=== PATIENT | female | born 1960 | race Caucasian/White ===

== ENCOUNTER 2020-03-28 08:42 | Emergency (ER) | payer MEDICAID, SELFPAY ==
[2020-03-28] VITALS (49 sets, daily range): BP systolic 138–198; BP diastolic 70–161; PULSE 48–84; RESP 9–38; TEMP 36.7; O2SAT 95–99
--- NOTE | 2020-03-28 08:45 | RT.EKG_ITS ---
APPROVED REPORT Exam: Resting ECG Patient Location: E HR:76 bpm ECG Measurements Heart Rate 76 AXIS DC 149 P 97 QRSd 102 QRS -59 QT 406 T 57 QTc 456 Conclusion Sinus rhythm...normal P axis, V-rate 60- 99 Left axis deviation...QRS axis (-30,-90)
--- NOTE | 2020-03-28 08:45 | DI.RAD_ITS ---
EXAM: XR CHEST 2V PA LATERAL CLINICAL HISTORY: stroke TECHNIQUE: 2D digital imaging was performed. COMPARISON: No exams were available for comparison FINDINGS: MEDIASTINUM: Normal. HEART: Normal. PULMONARY VASCULATURE: Normal. LUNGS: Clear. PLEURAL SPACE: No pleural effusion or pneumothorax. BONE:Normal. OTHER FINDINGS:Normal. IMPRESSION: No acute pulmonary findings. DATA REPOSITORY: RADIATION DOSE DELIVERED:
[2020-03-28 09:09] LABS: Abs Immature Grans 0.01 10^3/uL (0.0-0.06); Absolute Basophil Count 0.01 10^3/uL (0.0-0.2); Absolute Eosinophil Count 0.07 10^3/uL (0.0-0.7); Absolute Lymphocyte Count 1.77 10^3/uL (1.2-3.4); Absolute Monocyte Count 0.46 10^3/uL (0.1-0.8); Absolute Neutrophil Count 4.43 10^3/uL (1.2-6.7); Basophils % 0.1; HCT 41.4 % (36.0-46.0); HGB 13.9 g/dL (11.2-15.7); Immature Grans % 0.1; Lymphocytes % 26.2; MCH 29.6 pg (27.0-33.0); MCHC 33.6 % (32.0-36.0); MCV 88.3 fL (80-95); MPV 9.5 fL (8.0-11.0); Monocytes % 6.8; Neutrophils % 65.8; Nucleated RBC 0 %; Platelet Count 334 10^3/uL (130-400); RBC 4.69 10^6/uL (3.93-5.22); RDW 13.2 % (11.7-14.6); RDW-SD 42.6 fL; WBC 6.75 10^3/uL (4.4-10.8)
--- NOTE | 2020-03-28 09:15 | DI.CT_ITS ---
EXAM: CT BRAIN NECK CTA CLINICAL HISTORY: Aphasia, weakness. TECHNIQUE: Imaging Protocol: Axial CT angiography was performed with multi-slice acquisition and mu lti-planar and/or 3D reconstructions. CONTRAST MATERIAL: Intravenous: Omnipaque 350 Contrast volume:structured data in ml Intravenous: Omnipaque 350 Contrast volume:100 cc COMPARISON: US THYROID ULTRASOUND from 05/03/2012 US THYROID ULTRASOUND from 05/03/2012 FINDINGS: CT Head W/O: Ventricles and Extra axial spaces: Normal in size and morphology for the patient's age. Hemorrhage: None. Cerebral parenchyma: Normal. Midline shift: None. Brainstem/Cerebellum: Normal. Calvarium: Normal. Visualized Paranasal sinuses/Mastoids: Clear. Soft Tissues: Unremarkable. CTA Brain W: Internal Carotid Arteries: Petrous: Normal. Cavernous: Normal. Cerebral: Normal. Middle Cerebral Arteries: Right: No aneurysm, occlusion or significant stenosis. Left: No aneurysm, occlusion or significant stenosis. Anterior Cerebral Arteries: Right: No aneurysm, occlusion or significant stenosis. Left: No aneurysm, occlusion or significant stenosis. Posterior cerebral Arteries: Right: No aneurysm, occlusion or significant stenosis. Left: No aneurysm, occlusion or significant stenosis. Vertebral Arteries: Right: No aneurysm, occlusion or significant stenosis. Left: No aneurysm, occlusion or significant stenosis. Basilar Artery: No aneurysm, occlusion or significant stenosis. CTA Neck W: Common Carotid: Right: No aneurysm, occlusion or significant stenosis. Left: No aneurysm, occlusion or significant stenosis. External Carotid: Right: No aneurysm, occlusion or significant stenosis. Left: No aneurysm, occlusion or significant stenosis. Internal Carotid: Cavernous: Minimal calcification bilaterally. No significant stenosis. Right: No aneurysm, occlusion or significant stenosis. Left: No aneurysm, occlusion or significant stenosis. Vertebral Artery: Right: No aneurysm, occlusion or significant stenosis. Left: No aneurysm, occlusion or significant stenosis. Lung Apices: Normal. Bones: Degenerative disc changes greatest at C5-6. facet degenerative changes. Soft Tissues: 2 roughly centimeter nodule is noted in the left lobe of the thyroid. A Nodule was seen on previous thyroid ultrasound which measured 2 cm. IMPRESSION: 1. Minimal calcification in the internal carotid arteries, cavernous portion, otherwise normal CTA ex amination of the [place]. 2. Unremarkable noncontrast CT Head. 3. Normal CTA examination of the neck. Left thyroid nodule: Not definitely changed from previous exam. A thyroid ultrasound could be perfor med if clinically indicated. RADIATION DOSE DELIVERED: LINK-TO-SR Total DLP 1,134.27mGy.cm Total DLP DATA REPOSITORY: All CT scans at this facility are submitted to the National Radiology Data Registry (NRDR) Dose Index Registry (DIR) with the [employer] (ACR). RADIATION OPTIMIZATION: All CT scans at this facility use at least one of these dose optimization te chniques: automated exposure control; mA and/or kV adjustment per patient size (includes targeted exa ms where dose is matched to clinical indication); or iterative reconstruction.
[2020-03-28 09:23] LABS: Prothrombin Time 10.5 sec (9.3-11.0)
[2020-03-28 09:27] LABS: ALT 16 U/L (14-59); AST 16 U/L (15-37); Albumin 3.8 g/dL (3.4-5.0); Alkaline Phosphatase 82 U/L (46-116); Anion Gap 9.7 mmol/L (3-11); BUN 11 mg/dL (7-18); Bilirubin, Total 0.6 mg/dL (0.2-1.0); CO2 24.3 mmol/L (21.0-32.0); CREATININE 0.97 mg/dL (0.55-1.02); Calcium 9.4 mg/dL (8.5-10.1); Chloride 105 mmol/L (98-107); Estimated GFR 58.38 (mL/min/1.73m2); Glucose 110 mg/dL (74-106); Magnesium 1.9 mg/dL (1.8-2.4); Potassium 3.6 mmol/L (3.5-5.1); Sodium 139 mmol/L (136-145); Total Protein 7.3 g/dL (6.4-8.2); Troponin I < 0.05 ng/mL (<0.06)
--- NOTE | 2020-03-28 09:27 | ED.GENADUL_ITS ---
Discharge Plan Disposition Patient Disposition: HOME Condition: Stable Discharge Details Clinical Impression: Aphasia, Hypertension, Left-sided weakness Primary Care Provider: None,None ED Provider: Nicholas Pablo Home Meds and New Rx's Prescriptions: New aspirin 81 mg tablet,chewable 81 mg PO DAILY Qty: 30 RF: 0 metoprolol succinate 25 mg tablet extended release 24 hr 25 mg PO DAILY Qty: 14 RF: 0 No Action No Known Home Meds RF: 0 Discharge Instructions Instructions: Aphasia (DC), Weakness (ED), Hypertension (ED) Additional Instructions: Your laboratory values and imaging here in the ER did not reveal any obvious emergent process. Given your symptoms of hypertension, difficulty with word finding, and your left-sided weakness, I am still very concerned about your presentation. I have recommended and offered admission but you have declined. Therefore I have placed you on the care management list to help expedite outpatient primary care follow-up. I also personally spoke with our neurologist, Dr. Odom. She would like you to initiate aspirin therapy which I am providing you a prescription for I am also giving you a low dose of metoprolol to help with your chronic hypertension. Take this medication as directed. Please contact the office of Dr. Odom on Monday for prompt outpatient reevaluation. I have also set you up with a 2-week cardiac event monitor, the results of which will be sent to Dr. Odom. Please watch for new or worsening symptoms and return to the ER for any concerns. Lastly, as we discussed, care management will contact you, you will need to fill out paperwork to help obtain outpatient resources and insurance. Discharge Data Discharge Date/Time-TO BE ENTERED AT DEPARTURE: 03/28/20 13:37 Medical Decision Making This is a 59-year-old female, current smoker, who has a history of hypertension but does not take any medications and does not have a primary care provider. She went to bed asymptomatic on , and by the time she awoke Monday morning at 7 AM she reports that her speech was abnormal and she had left-sided weakness. Clinically she presents anxious, hyperventilating, upset. She is hypertensive and her heart rate is in the 90s. Will obtain IV access, give 10 mg IV labetalol, initiate a cardiac work-up including a brain CT without contrast and a CTA of her brain and neck. Case was immediately discussed with Dr. Pham. At this point differential is wide and includes CVA, TIA, dissection, aneurysm, arrhythmia, infectious process although no clinical suspicion for meningitis, electrolyte abnormalities, thyroid abnormality, etc. Patient has made it very clear to me that she will not be admitted or transferred for this, has full intent to go home today. I explained to her that this is typically a diagnosis and with active symptoms, we would at least admit for observation. She understands this and declines. She is willing to at least stay here for 3 hours for repeat troponin and EKG. Laboratory values do not reveal any obvious emergent process. Urinalysis does reveal positive nitrate, but negative leuk esterase, 5-10 red blood cells, 0-2 white cells, rare bacteria, few epithelials. Patient has no abdominal pain, dysuria or frequency. Upon reevaluation patient is no longer anxious, no longer hyperventilating. Clinically she states that she is feeling some improvement. She is using her left hand freely to use her cell phone. CT imaging unremarkable for obvious emergent process. As the patient has made it very clear that she will not be admitted or transferred for this, I spoke with Dr. Odom, neurology, who is happy to follow the patient in her clinic as an outpatient. She recommends initiating aspirin 81 mg daily, setting the patient up for a cardiac event monitor if possible through the ER. She plans on a more thorough evaluation as an outpatient including MRI of the brain and an echocardiogram. Repeat EKG performed at 1141. Please see official report by Dr. Pham. Sinus bradycardia, ventricular rate of 56. No STEMI. Repeat troponin remains less than 0.05. We discussed her work-up here in the ER. Patient tells me that she is aware of the thyroid nodules. She has been worked up as an outpatient. We also discussed my conversation with Dr. Odom. I am able to set the patient up with only a 14-day Holter from the ER setting, a 30-day will require prior authorization. Patient will contact the neurology office on Monday and I have placed her on the neurology list. I have also placed her on the care management list to help expedite outpatient primary care follow-up. Patient will need to complete paperwork early in the week so that her Holter monitor will be covered by insurance. I will provide her a prescription for baby aspirin and short-term to start her back on on a antihypertensive. She seemed to respond well to the labetalol, will place her on a beta-twyla. Again, she has no focal left-sided deficits upon my evaluation and this did not change during her ER observation. She may have been slightly slow to respond when using her left side but could not perform any task that was required. Her speech was very atypical; however, she was able to convey her thoughts after taking her time. Medical Records Medical records reviewed: Yes I reviewed the patient's medical records. Imaging Data Radiologic Study: Attestation: I personally reviewed and interpreted this imaging study as follows: Imaging: X-Ray Radiologist's impression: Chest x-ray read as negative. Radiologic Study #2: Attestation: I personally reviewed and interpreted this imaging study as follows: Imaging: CT Scan Radiologist's impression: CT of brain without contrast, CTA of brain and neck read by radiology as minimal atheromatous calcification of the bilateral cavernous carotid arteries but no focal stenosis is identified. CT head without contrast including angiograms otherwise normal. Minimal atheromatous calcification of left carotid bulb without stenosis. CT angiogram of the vessels of the neck is otherwise normal. 3.5 cm left thyroid nodule, ultrasound recommended. Degenerative arthritic cervical spine changes. Lab Data Lab results reviewed: Yes I reviewed the patient's lab results. Labs: Laboratory Tests Range/Units 03/28/20 03/28/20 03/28/20 08:56 08:56 08:56 WBC (4.4-10.8) 10^3/uL 6.75 RBC (3.93-5.22) 10^6/uL 4.69 Hgb (11.2-15.7) g/dL 13.9 Hct (36.0-46.0) % 41.4 MCV (80-95) fL 88.3 MCH (27.0-33.0) pg 29.6 MCHC (32.0-36.0) % 33.6 RDW (11.7-14.6) % 13.2 Plt Count (130-400) 10^3/uL 334 MPV (8.0-11.0) fL 9.5 Immature Gran % 0.1 Neutrophils % 65.8 Lymphocytes % 26.2 Monocytes % 6.8 Eosinophils % 1.0 Basophils % 0.1 Nucleated RBC % % 0 Absolute Neutrophils (1.2-6.7) 10^3/uL 4.43 Absolute Lymphocytes (1.2-3.4) 10^3/uL 1.77 Absolute Monocytes (0.1-0.8) 10^3/uL 0.46 Absolute Eosinophils (0.0-0.7) 10^3/uL 0.07 Absolute Basophils (0.0-0.2) 10^3/uL 0.01 PT (9.3-11.0) sec 10.5 INR (0.9-1.1) 1.0 Sodium (136-145) mmol/L 139 Potassium (3.5-5.1) mmol/L 3.6 Chloride (98-107) mmol/L 105 Carbon Dioxide (21.0-32.0) mmol/L 24.3 Anion Gap (3-11) mmol/L 9.7 BUN (7-18) mg/dL 11 Creatinine (0.55-1.02) mg/dL 0.97 Estimated GFR/1.73 m2 (mL/min/1.73m2) 58.38 Glucose (74-106) mg/dL 110 H Calcium (8.5-10.1) mg/dL 9.4 Magnesium (1.8-2.4) mg/dL 1.9 Total Bilirubin (0.2-1.0) mg/dL 0.6 AST (15-37) U/L 16 ALT (14-59) U/L 16 Alkaline Phosphatase (46-116) U/L 82 Troponin I (<0.06) ng/mL < 0.05 Total Protein (6.4-8.2) g/dL 7.3 Albumin (3.4-5.0) g/dL 3.8 Urine Color (Yellow) Urine Clarity (Clear) Urine pH (5-8) Ur Specific [place] (1.005-1.025) Urine Protein (Negative) mg/dL Urine Ketones (Negative) mg/dL Urine Blood (Negative) Urine Nitrite (Negative) Urine Bilirubin (Negative) Urine Urobilinogen (Up TO 0.2) EU/dL Ur Leukocyte Esterase (Negative) Urine RBC (0-2) HPF Urine WBC (0-5) HPF Ur Epithelial Cells (Negative) HPF Urine Crystals (Negative) HPF Urine Bacteria (Negative) HPF Urine Casts (Negative) LPF Urine Mucus (Negative) Ur Culture Indicated? Urine Glucose (Negative) mg/dL Urine Opiates Screen (Negative) Urine Methadone Screen (Negative) Ur Barbiturates Screen (Negative) Ur Tricyclics Screen (Negative) Ur Amphetamines Screen (Negative) U Benzodiazepines Scrn (Negative) Urine Cocaine Screen (Negative) Ur THC Screen (Negative) Range/Units 03/28/20 03/28/20 03/28/20 09:24 09:24 11:43 WBC (4.4-10.8) 10^3/uL RBC (3.93-5.22) 10^6/uL Hgb (11.2-15.7) g/dL Hct (36.0-46.0) % MCV (80-95) fL MCH (27.0-33.0) pg MCHC (32.0-36.0) % RDW (11.7-14.6) % Plt Count (130-400) 10^3/uL MPV (8.0-11.0) fL Immature Gran % Neutrophils % Lymphocytes % Monocytes % Eosinophils % Basophils % Nucleated RBC % % Absolute Neutrophils (1.2-6.7) 10^3/uL Absolute Lymphocytes (1.2-3.4) 10^3/uL Absolute Monocytes (0.1-0.8) 10^3/uL Absolute Eosinophils (0.0-0.7) 10^3/uL Absolute Basophils (0.0-0.2) 10^3/uL PT (9.3-11.0) sec INR (0.9-1.1) Sodium (136-145) mmol/L Potassium (3.5-5.1) mmol/L Chloride (98-107) mmol/L Carbon Dioxide (21.0-32.0) mmol/L Anion Gap (3-11) mmol/L BUN (7-18) mg/dL Creatinine (0.55-1.02) mg/dL Estimated GFR/1.73 m2 (mL/min/1.73m2) Glucose (74-106) mg/dL Calcium (8.5-10.1) mg/dL Magnesium (1.8-2.4) mg/dL Total Bilirubin (0.2-1.0) mg/dL AST (15-37) U/L ALT (14-59) U/L Alkaline Phosphatase (46-116) U/L Troponin I (<0.06) ng/mL < 0.05 Total Protein (6.4-8.2) g/dL Albumin (3.4-5.0) g/dL Urine Color (Yellow) Yellow Urine Clarity (Clear) Clear Urine pH (5-8) 6.0 Ur Specific [place] (1.005-1.025) 1.020 Urine Protein (Negative) mg/dL Negative Urine Ketones (Negative) mg/dL Negative Urine Blood (Negative) Trace-intact H Urine Nitrite (Negative) Positive H Urine Bilirubin (Negative) Negative Urine Urobilinogen (Up TO 0.2) EU/dL 0.2 Ur Leukocyte Esterase (Negative) Negative Urine RBC (0-2) HPF 5-10 H Urine WBC (0-5) HPF 0-2 Ur Epithelial Cells (Negative) HPF Few Urine Crystals (Negative) HPF Negative Urine Bacteria (Negative) HPF Rare Urine Casts (Negative) LPF Negative Urine Mucus (Negative) Trace Ur Culture Indicated? No Urine Glucose (Negative) mg/dL Negative Urine Opiates Screen (Negative) Negative Urine Methadone Screen (Negative) Negative Ur Barbiturates Screen (Negative) Negative Ur Tricyclics Screen (Negative) Negative Ur Amphetamines Screen (Negative) Negative U Benzodiazepines Scrn (Negative) Negative Urine Cocaine Screen (Negative) Negative Ur THC Screen (Negative) Positive A ECG Data Attestation: I personally reviewed and interpreted this ECG (s) as follows: Interpretation: Please see official report by Dr. Pham. Sinus rhythm, ventricular rate of 76. No STEMI. HPI General Mode of arrival: ambulatory . Date/Time Provider Initiated Documentation: 03/28/20 08:44 . Limitations to Documentation: no limitations . Information obtained by: patient . HPI Narrative: This is a 59-year-old female who reports history of hypertension, not taking any medications. She is a current smoker. She states that she was asymptomatic on , went to bed around 7 PM. Woke up around 2 AM, tells me that she felt a little funny, is vague as to what she felt to, did not think much of it and went back to bed. She states that upon awaking Monday morning around 7 AM she felt as though her speech was different, has left facial, arm, leg weakness, and is just not acting herself. She denies any recent illness or trauma. She tells me that she is left-hand dominant. 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 She is able to move her left side but feels as though there is a delay when trying to move her left side and really has to concentrate before it will function properly. She states me do not feel well, me do not usually talk like this. She also states that she is having difficulty relating what she is thinking into what comes out of her mouth. She is having difficulty picking the correct words but if she concentrates and thinks about it for a long time then she is able to find the proper word. Related Data Home Medications Medication Instructions Recorded Confirmed Unknown [No Known Home Meds] 08/12/17 03/28/20 aspirin 81 mg PO DAILY #30 tab 03/28/20 metoprolol succinate 25 mg PO DAILY #14 tab 03/28/20 Previous Rx's Medication Instructions Recorded aspirin 81 mg PO DAILY #30 tab 03/28/20 metoprolol succinate 25 mg PO DAILY #14 tab 03/28/20 Allergies Allergy/AdvReac Type Severity Reaction Status Date / Time No Known Allergies Allergy Unverified 03/28/20 08:51 General Stated Complaint: CVA/TIA ZENAIDA: 2 Review of Systems Constitutional Constitutional: Denies fatigue, Denies fever(s), Denies headache(s) and Reports weakness Eyes Eyes: Denies change in vision ENT Ears, Nose, Mouth, and Throat: Denies headache(s) and Denies neck pain Cardiovascular Cardiovascular: Denies chest pain and Denies dyspnea Respiratory Respiratory: Denies cough and Denies dyspnea Gastrointestinal Gastrointestinal: Denies abdominal pain, Denies fecal incontinence, Denies nausea and Denies vomiting Genitourinary Genitourinary: Denies dysuria and Denies urinary incontinence Musculoskeletal Musculoskeletal: Denies back pain, Denies neck pain, Denies numbness and Denies tingling Integumentary/Breasts Skin/Breast: Denies rash Neurologic Neurologic: Denies headache(s), Denies numbness, Denies tingling and Reports weakness Endocrine Endocrine: Denies fatigue [facility] Social History Smoking/Tobacco Use Status: Current every day Tobacco Type: cigarettes and pipe Smoking risk assessment performed?: Yes Drug use: Daily Substance use type: marijuana Do you feel safe in your relationship?: Yes Exam Const General: cooperative, healthy appearing and anxious Orientation: alert, awake and oriented x3 HENPA Head: normal to inspection, normocephalic and atraumatic Ears: external ears normal, TM's normal bilaterally and EAC's normal General nose exam: external nose normal Face and sinus: normal facial exam Mouth: oral mucosae normal and moist mucous membranes Throat: posterior oropharynx normal Eyes General: appearance normal, both eyes and all related structures Alignment and Position: alignment normal Periorbital: periorbital findings normal Eyelids: eyelids normal Conjunctivae: conjunctivae normal Sclera: sclerae normal Cornea: corneas normal Pupils: PERRL EOM: EOM intact bilaterally Direct ophthalmoscopy: normal light reflex Neck Neck: normal visual inspection, full ROM, no meningeal signs, trachea midline, supple and nontender Resp Effort & Inspection: normal respiratory effort, able to speak in complete sentences and other (Hyperventilating) Auscultation: clear to auscultation bilaterally Cardio Rate: regular rate Rhythm: regular rhythm GI Palpation: soft, not firm, no guarding, no pulsatile masses and nontender Auscultation: normal bowel sounds Back/Spine/Pelvis Back: No back tenderness Skin General skin exam: no rashes or lesions noted Neuro General: patient alert, patient awake, patient oriented x3, gait normal, tone normal, moves all extremities, no meningeal signs, no focal motor deficits and CN's II-XI intact bilaterally Cranial Nerves: CN's II-XI intact bilaterally Cognition: normal cognition Speech: abnormal speech slurred (Minimally) and other Gait: normal gait Motor: muscle tone normal throughout, strength 5/5 throughout, no pronator drift, no movement abnormalities noted and no fasciculations Sensory Exam: no sensory deficits noted Coordination: [id number] test normal, [id number] test normal and Does not sway with eyes open Other: Patient has a very atypical speech pattern. She has very slow and direct speech. It would appear she has almost a incomplete conductive aphasia however with this time is able to find the words that she is looking for and able to convey her thoughts. She tends to use the pronoun in the pronoun me rather than I when speaking. She describes the speech as abnormal from her baseline. Extrem General: normal to inspection, full ROM, capillary refill normal, no pedal edema and no calf tenderness Right upper extremity: normal to inspection, full ROM and normal capillary refill Left upper extremity: normal to inspection, full ROM and normal capillary refill Right lower extremity: normal to inspection, full ROM and normal capillary refill Left lower extremity: normal to inspection, full ROM and normal capillary refill Other: Patient has a 5 out of 5 strength bilaterally throughout. She is able to follow command however when asked to follow commands on her left side she is delayed for a second or 2 and then able to complete the task. No delay on the right side. Psych Appearance: grossly normal Mental Status: mental status grossly normal Course Vital Signs Vital signs: Vital Signs Temperature 36.7 C 03/28/20 08:47 Pulse 79 03/28/20 08:47 Respiratory Rate 18 03/28/20 08:47 Blood Pressure 194/105 H 03/28/20 08:47 Pulse Oximetry 98 03/28/20 08:47 Temperature 36.7 C 03/28/20 08:47 Temperature Source Skin 03/28/20 08:47 Pulse 79 03/28/20 08:47 Respiratory Rate 25 H 03/28/20 08:52 Respiratory Effort Non-Labored 03/28/20 08:52 Respiratory Depth Normal 03/28/20 08:52 Respiratory Pattern Normal 03/28/20 08:52 Blood Pressure 194/105 H 03/28/20 08:47 Blood Pressure Position Supine 03/28/20 08:47 Pulse Oximetry 98 03/28/20 08:47 Oxygen Delivery Method Room Air 03/28/20 08:47 Oxygen Flow Rate 0 03/28/20 08:47 Pain Level 0 03/28/20 08:47 Lab/Test Results Lab/Test Results: Laboratory Tests Range/Units 03/28/20 03/28/20 08:56 08:56 WBC (4.4-10.8) 10^3/uL 6.75 RBC (3.93-5.22) 10^6/uL 4.69 Hgb (11.2-15.7) g/dL 13.9 Hct (36.0-46.0) % 41.4 MCV (80-95) fL 88.3 MCH (27.0-33.0) pg 29.6 MCHC (32.0-36.0) % 33.6 RDW (11.7-14.6) % 13.2 Plt Count (130-400) 10^3/uL 334 MPV (8.0-11.0) fL 9.5 Immature Gran % 0.1 Neutrophils % 65.8 Lymphocytes % 26.2 Monocytes % 6.8 Eosinophils % 1.0 Basophils % 0.1 Nucleated RBC % % 0 Absolute Neutrophils (1.2-6.7) 10^3/uL 4.43 Absolute Lymphocytes (1.2-3.4) 10^3/uL 1.77 Absolute Monocytes (0.1-0.8) 10^3/uL 0.46 Absolute Eosinophils (0.0-0.7) 10^3/uL 0.07 Absolute Basophils (0.0-0.2) 10^3/uL 0.01 PT (9.3-11.0) sec 10.5 INR (0.9-1.1) 1.0
[2020-03-28 09:42] LABS: *AMPHETAMINES SCREEN URINE Negative (Negative); *BARBITURATES SCREEN URINE Negative (Negative); *BENZODIAZEPINES SCREEN URINE Negative (Negative); Cannabinoids THC POSITIVE (Negative); Cocaine Screen,Urine Negative (Negative); METHADONE URINE SCREEN Negative (Negative); OPIATES URINE SCREEN Negative (Negative)
[2020-03-28 09:43] LABS: Tricyclic Antidepressants Negative (Negative)
[2020-03-28] MEDS: Omnipaque 350 MG/ML 100 ML BTL IJ (09:45)
[2020-03-28] MEDS: Normal Saline Flush 10 ML SYR IVP (09:46)
[2020-03-28] MEDS: Normal Saline - Diluent 50 ML VIAL IV (09:46)
[2020-03-28 09:50] LABS: Bilirubin Negative (Negative); Blood Trace-intact (Negative); Clarity Clear (Clear); Glucose Negative (Negative); Ketones Negative (Negative); Leukocyte Esterase Negative (Negative); Nitrite Positive (Negative); Urobilinogen 0.2 EU/dL (Up TO 0.2)
--- NOTE | 2020-03-28 09:53 | DI.VRAD_ITS ---
PROCEDURE INFORMATION: Exam: XR Chest, 2 Views Exam date and time: 03/28/2020 9:02 AM Age: 59 years old Clinical indication: Other: Aphasia, weakness TECHNIQUE: Imaging protocol: XR of the chest Views: 2 views. COMPARISON: No relevant prior studies available. FINDINGS: Lungs: Unremarkable. No consolidation. Pleural space: Unremarkable. No pleural effusion. No pneumothorax. Heart/Mediastinum: Unremarkable. No cardiomegaly. 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 IMPRESSION: No acute findings. Dictated and Authenticated by: Juanis Mcginnis MD. Ordering:OC Peterson MD
[2020-03-28 09:59] LABS: Bacteria Rare HPF (Negative); C & S Indicated? No; Casts Negative LPF (Negative); Crystals Negative HPF (Negative); Epithelial Cells Few HPF (Negative); Mucus Trace (Negative); WBC 0-2 HPF (0-5)
--- NOTE | 2020-03-28 10:15 | DI.VRAD_ITS ---
PROCEDURE INFORMATION: Exam: CT Angiography Head With Contrast Exam date and time: 03/28/2020 9:29 AM Age: 59 years old Clinical indication: Other: Aphasia and weakness TECHNIQUE: Imaging protocol: Computed tomography angiography of the head with intravenous contrast. 3D rendering (Not supervised by radiologist): MIP and/or 3D reconstructed images were created by the technologist. COMPARISON: No relevant prior studies available. FINDINGS: ANTERIOR CIRCULATION: Right internal carotid artery: Minimal atheromatous calcification right cavernous carotid artery Right middle cerebral artery: Unremarkable. No occlusion or significant stenosis. No aneurysm. Right anterior cerebral artery: Unremarkable. No occlusion or significant stenosis. No aneurysm. Left internal carotid artery: Minimal atheromatous calcification left cavernous carotid artery. Left middle cerebral artery: Unremarkable. No occlusion or significant stenosis. No aneurysm. Left anterior cerebral artery: Unremarkable. No occlusion or significant stenosis. No aneurysm. POSTERIOR CIRCULATION: Right vertebral artery: Unremarkable. No occlusion or significant stenosis. No aneurysm. Left vertebral artery: Unremarkable. No occlusion or significant stenosis. No aneurysm. Basilar artery: Unremarkable. No occlusion or significant stenosis. No aneurysm. Right posterior cerebral artery: Unremarkable. No occlusion or significant stenosis. No aneurysm. Left posterior cerebral artery: Unremarkable. No occlusion or significant stenosis. No aneurysm. Brain: No definite mass, mass effect, or midline shift. Cerebral ventricles: No ventriculomegaly. Bones/joints: Unremarkable. No acute fracture. Soft tissues: Unremarkable. IMPRESSION: 1. Minimal atheromatous calcification the bilateral cavernous carotid arteries but no focal stenosis is identified. CT head out and with contrast including angiogram is otherwise normal. PROCEDURE INFORMATION: Exam: CT Angiography Neck With Contrast Exam date and time: 03/28/2020 9:29 AM Age: 59 years old Clinical indication: Other: Aphasia and weakness TECHNIQUE: Imaging protocol: Computed tomography angiography of the neck with intravenous contrast. 3D rendering (Not supervised by radiologist): MIP and/or 3D reconstructed images were created by the technologist. COMPARISON: No relevant prior studies available. FINDINGS: Right common carotid artery: No stenosis. No dissection or occlusion. Right internal carotid artery: No stenosis of the extracranial segment. No dissection or occlusion. Right external carotid artery: No occlusion or stenosis of the origin. Right vertebral artery: No stenosis. No dissection or occlusion. Left common carotid artery: No stenosis. No dissection or occlusion. Left internal carotid artery: Minimal atheromatous calcification left carotid bulb. Left external carotid artery: No occlusion or stenosis of the origin. Left vertebral artery: No stenosis. No dissection or occlusion. Aorta: Minimal atheromatous calcifications of the thoracic aorta. Thyroid: Heterogeneous 3.5 cm left thyroid. Recommend sonographic evaluation. Bones/joints: Low-grade anterolisthesis C4 on C5. Narrowed C5-C6 interspace with circumferential endplate osteophyte formation. Anterior endplate osteophyte formation at C4-C5. Degenerative arthritis in the left C3-C4, C4-C5 and C7-T1 cervical facet joints. Soft tissues: Normal. No significant soft tissue swelling. IMPRESSION: 1. Minimal atheromatous calcification of left carotid bulb without stenosis. CT angiogram of the vessels of neck is otherwise normal. 2. 3.5 cm left thyroid nodule. Ultrasound recommended. 3. Degenerative arthritis cervical spine. REFERENCES: NASCET CRITERIA. The degree of internal carotid artery stenosis is based on NASCET criteria. Normal is no stenosis. Mild is less than 50% stenosis. Moderate is 50-69% stenosis. Severe is 70% to 99% stenosis. Total occlusion is no detectable patent lumen. Dictated and Authenticated by: Juanis Mcginnis MD. Ordering:OC Peterson MD
[2020-03-28] MEDS: Labetalol 100 MG/20 ML VIAL 10 MG IVP (11:04)
[2020-03-28] MEDS: Aspirin 81 MG CHEW CH (11:11)
--- NOTE | 2020-03-28 11:15 | NUR.NOTE ---
Neurology notified spoke with dr. Schmidt and also sent to care [facility]. for pcp Ilya Bravo Note:
--- NOTE | 2020-03-28 11:30 | RT.EKG_ITS ---
APPROVED REPORT Exam: Resting ECG Patient Location: E HR:56 bpm ECG Measurements Heart Rate 56 AXIS WY 166 P 70 QRSd 107 QRS -43 QT 463 T 53 QTc 446 Conclusion Sinus bradycardia..Nondiagnostic EKG
[2020-03-28 12:03] LABS: Troponin I < 0.05 ng/mL (<0.06)
--- NOTE | 2020-03-30 15:56 | CMPROGNOTE_ITS ---
- If Service Date Differs Date of service: 03/30/20 Time of Service: 15:56 Care Management Progress Note Nathalia is seen in the ED on 03/28/20 for left sided weakness. At the request of ED provider, KALLI coordinates a referral to Enid Raymundo of [facility], on-call provider, to assist Nathalia is obtaining a follow up appointment and in establishing care with a PCP. KALLI follow up by telephone with the [facility] and learns an appointment is scheduled for Nathalia on 04/06/2020.
--- NOTE | 2020-04-15 10:34 | W.ZIOMONITOR ---
Date of service: 04/15/20 Time of Service: 10:34 14 Day Nurse Aide Evaluator Referring Provider:: Diana Odom Indications:: Stroke Note: This is a 14-day Holter monitor ordered due to stroke Rhythm throughout was sinus. Average heart rate was 56. Minimum was 40, maximum 145 There were rare ventricular ectopy beats There were occasional atrial premature beats. There were rare atrial couplets. There were rare self-limited atrial runs, the longest of which lasted 19 beats in duration There was no atrial fibrillation. There were no pauses greater than 3 seconds. There was no high-grade AV block No patient symptoms were reported
== END 2020-03-28 13:37 | disposition home or self-care (01) ==
PROVIDERS: Emergency Provider Physician Assistant; PCP Nurse Practitioner Family
DX: R47.01 Aphasia (principal); G83.22 Monoplegia of upper limb affecting left dominant side; F17.210 Nicotine dependence, cigarettes, uncomplicated; I10 Essential (primary) hypertension
CPT/HCPCS: 36415; 36416; 70496; 70498; 80053; 80307; 82962; 93005; 96374; 99285; 71046; 81003; 81015; 83735; 84484; 85025; 85610; 93010; J3490

== ENCOUNTER 2020-04-23 00:40 | Outpatient (CLI) | payer SELFPAY ==
--- NOTE | 2020-04-23 12:10 | DI.US_ITS ---
APPROVED REPORT EXAM: Comprehensive 2D, Doppler, and color-flow Echocardiogram Patient Location: Out-Patient [employer] Operator: Temi Mccauley RDCS (AE) Rhythm: Bradycardia Indications: New heart murmur Other Information Study Quality: Good Conclusion Left Ventricle : The left ventricle is normal size. The left ventricular systolic function is normal. The left ventricular ejection fraction is within the normal range. There is normal left ventricular wall thickness. There is normal LV segmental wall motion. The left ventricular diastolic function is normal. LVEF is 60-65%. Right Ventricle : The right ventricle is normal size. The right ventricular systolic function is norm al. The RVSP is 27.3 mmHg. Atria : The left atrium size is normal. The right atrium size is normal. Aortic Valve : The aortic valve is normal in structure. Aortic valve is trileaflet. Moderate aortic r egurgitation. There is no aortic valvular stenosis. Mitral Valve : Mild mitral annular calcification. Mild mitral regurgitation. No evidence of mitral va lve stenosis. Great Vessels : The aortic root is normal in size. The ascending aorta is mildly dilated. Aortic arch is normal in caliber. IVC is normal in size and collapses >50% with inspiration. Compared to the report of a study from [place] in 2016, the patient's aortic regurgitation has incr eased slightly. Wall motion Left Ventricle The left ventricle is normal size. The left ventricular systolic function is normal. The left ventric ular ejection fraction is within the normal range. There is normal left ventricular wall thickness. T here is normal LV segmental wall motion. The left ventricular diastolic function is normal. There is no ventricular septal defect visualized. LVEF is 60-65%. Right Ventricle The right ventricle is normal size. The right ventricular systolic function is normal. The RVSP is 27 .3 mmHg. Atria The left atrium size is normal. The right atrium size is normal. Aortic Valve The aortic valve is normal in structure. Aortic valve is trileaflet. There is no aortic valvular sten osis. Moderate aortic regurgitation. Mitral Valve Mild mitral annular calcification. No evidence of mitral valve stenosis. Mild mitral regurgitation. Tricuspid Valve The tricuspid valve is normal in structure. There is no tricuspid valve stenosis. Mild tricuspid regu rgitation. Pulmonic Valve Pulmonic valve is not well visualized. There is no pulmonic valvular stenosis. Mild pulmonic regurgit ation. Great Vessels The aortic root is normal in size. The ascending aorta is mildly dilated. Aortic arch is normal in ca liber. IVC is normal in size and collapses >50% with inspiration. Pericardium There is no pericardial effusion. 2D Dimensions IVSD d PLAX 0.96 cm F: 0.6-1.0 LV Vol A2C d MOD 79.3 mL LVPW d PLAX 0.97 cm F: 0.6 - 1.0 LV Vol A4C d MOD 111.1 mL LVID d PLAX 4.66 cm F: 3.8 - 5.2 LA vol/ BSA A2C s A-L 23.4 mL/m2 LVDs 3.15 cm F: 2.2 - 3.5 LA vol/ BSA A4C s A-L 27.5 mL/m2 Ao Root d 3.15 cm F: 2.7 - 3.3 LA Vol/ BSA Biplane s A-L 26.5 mL/m2 RA Area A4C 14.13 cm2 LA Area A4C s MOD 17.91 cm2 RA Vol/ BSA A4C s A-L 20.1 mL/m2 LA Area A2C s MOD 15.84 cm2 Ao Asc Diam d 3.52 cm F: 2.3 - 3.1 LV EF A4C MOD 61.3 % LV EF Teichholz 59.8 % LV EF A2C MOD 65.5 % LVEF (Brantley's) 64.47 % F: 54 - 74 LV EF Biplane MOD 64.5 % LV Volume 74.81 mL F: 46 - 106 SV 62.48 mL LV Volume Index 40.65 mL/m2 F: 29 - 61 SV Index 33.97 mL/m2 LV Vol Biplane MOD 96.9 mL FS 31.70 % M-Mode TAPSE 2.91 cm (M/F) >1.7 LV Diastology MV E' medial 0.085 (>0.07 m/s) E/A Ratio 1.0 LV E/e MED 7.05 (<14) MV E Vmax 0.60 (0.4-1.3 m/s) MV E' lateral 0.093 (>0.1 m/s) MV A Vmax 0.60 (0.4-1.3 m/s) LV E/e LAT 6.45 (<14) MV E/A Ratio 0.99 MV E/E' medial 7.09 MV E/E' lateral 6.47 Aortic Valve LVOT Area 3.22 cm2 AoV Area Vmax 2.41 cm2 LVOT Vmax 1.12 m/s AoV Area/ BSA (Vmax) 1.31 cm2/m2 LVOT Mean Fabian. 0.72 m/s JORI Mean Fabian. 2.38 cm2 LVOT Peak Grad 5.0 mmHg JORI Mean Fabian. Index 1.29 cm2/m2 LVOT Mean Grad 2.4 mmHg AR DT 2261 msec LVOT VTI 0.273 m AR PHT 656 msec LVOT Diam s 2.00 cm AoV Vmax 1.50 m/s Velocity Ratio 0.74 AoV Mean Fabian. 0.97 m/s AoV Peak Grad 9.0 mmHg LVOT SV 88.08 mL AoV Mean Grad 4.3 mmHg AoV VTI 0.317 m AoV Area VTI 2.78 cm2 AoV Area/ BSA (VTI) 1.51 cm/m2 Mitral Valve MV DT 269 (160-240 msec) MV PHT 78 msec MV Area PHT 2.82 cm2 Pulmonary Valve PV Vmax 0.70 (0.5-1.5 m/s) RVOT Peak Gr. 1.51 mmHg PV Peak Grad 1.9 mmHg RVOT Mean Gr. 0.85 mmHg PV Mean Grad 1.1 mmHg RVOT VTI 0.168 m PV VTI 0.185 m RVOT Vmax 0.61 m/s Tricuspid Valve TR Peak Grad 24.2 mmHg TR Vmax 2.46 m/s RA Pressure 3.00 mmHg RVSP (TR) 27.3 mmHg
== END 2020-04-23 00:41 | disposition home or self-care (01) ==
LOC: DI 00:42
PROVIDERS: PCP Nurse Practitioner Family; Visit Provider Psychiatry & Neurology Neurology
DX: R01.1 Cardiac murmur, unspecified (principal); I08.0 Rheumatic disorders of both mitral and aortic valves
CPT/HCPCS: 93306

== ENCOUNTER 2021-11-11 18:10 | Outpatient (REF) | payer MEDICAID, SELFPAY ==
[2021-11-11 16:06] LABS: ALT 21 U/L (14-59); AST 15 U/L (15-37); Albumin 3.3 g/dL (3.4-5.0); Alkaline Phosphatase 63 U/L (46-116); BUN 9 mg/dL (7-18); Bilirubin, Total 0.5 mg/dL (0.2-1.0); CREATININE 0.9 mg/dL (0.55-1.02); Calcium 8.9 mg/dL (8.5-10.1); Calculated LDL 142 mg/dL (<100); Chloride 108 mmol/L (98-107); Cholesterol 210 mg/dL (<200); Glucose 95 mg/dL (74-106); HDL Cholesterol 50 mg/dL (40-60); Sodium 143 mmol/L (136-145); TSH (W/Ref FT4) 3.19 uIU/mL (0.36-3.74); Triglyceride 93 mg/dL (<150)
[2021-11-11 16:35] LABS: NT-proBNP 558 pg/mL (<300)
== END 2021-11-11 18:11 | disposition home or self-care (01) ==
LOC: NCHCN 18:10
PROVIDERS: PCP Nurse Practitioner Family; Visit Provider Nurse Practitioner Family
DX: I10 Essential (primary) hypertension (principal); R60.0 Localized edema; R00.2 Palpitations
CPT/HCPCS: 80053; 80061; 83880; 84443

== ENCOUNTER 2022-10-10 15:47 | Outpatient (REF) | payer MEDICAID, SELFPAY ==
[2022-10-10 16:01] LABS: Abs Immature Grans 0.01 10^3/uL (0.0-0.06); Absolute Basophil Count 0.02 10^3/uL (0.0-0.2); Absolute Eosinophil Count 0.09 10^3/uL (0.0-0.7); Absolute Lymphocyte Count 1.99 10^3/uL (1.2-3.4); Absolute Monocyte Count 0.49 10^3/uL (0.1-0.8); Absolute Neutrophil Count 4.46 10^3/uL (1.2-6.7); Basophils % 0.3; Eosinophils % 1.3; HCT 43.5 % (36.0-46.0); HGB 14.6 g/dL (11.2-15.7); Immature Grans % 0.1; Lymphocytes % 28.2; MCH 29.4 pg (27.0-33.0); MCHC 33.6 % (32.0-36.0); MCV 88 fL (80-95); Monocytes % 6.9; Neutrophils % 63.2; Platelet Count 350 10^3/uL (130-400); RBC 4.97 10^6/uL (3.93-5.22); RDW 13.5 % (11.7-14.6); RDW-SD 43.1 fL; WBC 7.06 10^3/uL (4.4-10.8)
[2022-10-10 16:36] LABS: Hemoglobin A1C 5.5 % (<5.7)
[2022-10-10 17:13] LABS: Vitamin D 25 Total 19.2 ng/mL (30-100)
[2022-10-10 17:15] LABS: ALT 17 U/L (14-59); AST 26 U/L (15-37); Albumin 3.8 g/dL (3.4-5.0); Alkaline Phosphatase 87 U/L (46-116); Anion Gap 6.8 mmol/L (3-11); BUN 16 mg/dL (7-18); Bilirubin, Total 0.5 mg/dL (0.2-1.0); CO2 30.2 mmol/L (21.0-32.0); CREATININE 1.1 mg/dL (0.55-1.02); Calcium 9.9 mg/dL (8.5-10.1); Calculated LDL 88 mg/dL (<100); Chloride 103 mmol/L (98-107); Cholesterol 158 mg/dL (<200); Estimated GFR 56.46 (mL/min/1.73m2); Ferritin 77 ng/mL (8-252); Glucose 100 mg/dL (74-106); HDL Cholesterol 56 mg/dL (40-60); Potassium 3.7 mmol/L (3.5-5.1); Sodium 140 mmol/L (136-145); TSH (W/Ref FT4) 3.04 uIU/mL (0.36-3.74); Total Protein 7.6 g/dL (6.4-8.2); Triglyceride 70 mg/dL (<150); Vitamin B12 426 pg/mL (193-986)
== END 2022-10-10 15:48 | disposition home or self-care (01) ==
LOC: NCHCN 15:47
PROVIDERS: PCP Nurse Practitioner Family; Visit Provider Nurse Practitioner Family
DX: E78.5 Hyperlipidemia, unspecified (principal); I10 Essential (primary) hypertension; E01.0 Iodine-deficiency related diffuse (endemic) goiter; E53.8 Deficiency of other specified B group vitamins; E55.9 Vitamin D deficiency, unspecified; R79.89 Other specified abnormal findings of blood chemistry
CPT/HCPCS: 80053; 80061; 82306; 82607; 82728; 83036; 84443; 85025